=== PATIENT | male | born 2000 | race Caucasian/White ===

== ENCOUNTER 2020-05-17 22:51 | Emergency (ER) | payer SELFPAY ==
[~2020-05-17] VITALS: Ht 177.8 cm; Wt 104.0 kg
[2020-05-17 23:10] VITALS: BP 136/88
[2020-05-17] MEDS ORDERED: ONDANSETRON HCL 4MG/2ML INJ IV STA (23:54)
[2020-05-18] MEDS ORDERED: SODIUM CHLORIDE 0.9% 1,000 ML IV ONE
[2020-05-18 00:25] LABS: BASOPHILS % 0.4 % (0.0-2.0); EOSINOPHILS % 0.1 % (0.0-5.0); HEMATOCRIT. 48.8 % (42.0-52.0); HEMOGLOBIN. 16.6 g/dL (14.0-18.0); LYMPHOCYTES % 9.7 % (20.0-50.0); MEAN CORPUSCULAR HEMOGLOBIN 29.4 pg (28.0-32.0); MEAN CORPUSCULAR VOLUME 86.3 fL (80.0-94.0); MONOCYTES % 4.4 % (2.0-8.0); NEUTROPHILS % 85.4 % (40.0-76.0); PLATELET 277 x1000/uL (130-400); RED BLOOD CELL COUNT 5.65 mill/uL (4.7-6.1); RED CELL DISTRIBUTION WIDTH 13.7 % (11.6-14.6)
[2020-05-18 00:32] LABS: CHLORIDE 109 mEq/L (98-107)
[2020-05-18 00:39] LABS: ETHANOL BLOOD < 10 mg/dL
== END 2020-05-18 02:35 | disposition home or self-care (01) ==
LOC: ER 22:51
DX: T40.7X1A Poisoning by cannabis (derivatives), accidental (unintentional), initial encounter (principal); G93.40 Encephalopathy, unspecified; Y92.89 Other specified places as the place of occurrence of the external cause
CPT/HCPCS: 36415; 80053; 80320; 85025; 93005; 99284; J7030; G0480